=== PATIENT | female | born 1975 | race Caucasian/White ===

== ENCOUNTER → 2016-09-28 | Outpatient (CLI) | payer OTHER | LOC: FIMAGING 10:25 | DX: Z12.31 Encounter for screening mammogram for malignant neoplasm of breast (principal); Z80.3 Family history of malignant neoplasm of breast | CPT/HCPCS: G0202 ==

== ENCOUNTER 2016-10-10 07:33 | Day surgery (SDC) | payer OTHER ==
[2016-10-10] MEDS ORDERED: ROPIVACAINE HCL 20 MG/10 ML INJ EP ONE ×2 (07:45→08:47)
[2016-10-10] MEDS ORDERED: MIDAZOLAM 2 MG/2 ML VIAL ONE ×2 (08:42→08:48)
[2016-10-10] MEDS ORDERED: fentaNYL 100 MCG/2 ML INJ ONE ×3 (08:48→11:14)
[2016-10-10] MEDS ORDERED: PROPOFOL 200 MG/20 ML VIAL ONE (08:49)
[2016-10-10] MEDS ORDERED: PROPOFOL/EMULSION 500 MG/50 ML BOTTLE IV ONE (08:49)
[2016-10-10] MEDS ORDERED: LIDOCAINE 1% 5 ML SDV ID PRN (09:00)
[2016-10-10] MEDS ORDERED: LR 1,000 ML IV ONE (09:00)
[2016-10-10] MEDS ORDERED: LIDOCAINE 2% 5 ML SDV ONE (10:22)
[2016-10-10] MEDS ORDERED: ONDANSETRON 4 MG/2 ML VIAL ONE (10:23)
[2016-10-10] MEDS ORDERED: DEXAMETHASONE 4 MG/ML VIAL ONE (10:23)
[2016-10-10] MEDS ORDERED: KETOROLAC 30 MG/1 ML SDV ONE (10:23)
[2016-10-10] MEDS ORDERED: HYDROmorphONE/DILAUDID 1 MG/ML SYR ONE ×2 (11:20→11:58)
--- NOTE | 2016-10-10 11:46 | GOP ---
[f rep st] OPERATIVE REPORT DATE OF OPERATION: 10/10/2016 SURGEON: Kerwin Mesa MD PREOPERATIVE DIAGNOSIS: Nascent malunion, left distal radius. POSTOPERATIVE DIAGNOSIS: Nascent malunion, left distal radius. PROCEDURE PERFORMED: 1. Closing wedge osteotomy, left distal radius. 2. Open reduction, internal fixation with volar locking plate. FINDINGS: ESTIMATED BLOOD LOSS: 100 cc. INDICATIONS: The patient is a 41-year-old female, healthy. Had a snowboarding injury a couple redd hs ago. Had 3 interval x-rays that show reasonable alignment of the distal radius fracture. Is ext ra-articular. Between week 3 and week 7, she lost reduction dorsal tilt and shortening. Increasing pain. Reports no history of trauma. The patient elects for operative reduction for nascent maluni on of the left distal radius. DESCRIPTION OF PROCEDURE: The patient identified in the preoperative holding area. Consent, latera lity, and preoperative antibiotics were confirmed and delivered. All questions were answered. Defo rmed left wrist. Dinner fork deformity. Preoperative films reviewed. She needed about 30 degrees of correction to get back to neutral and a few millimeters of radial inclination, a few degrees of radial inclination. The patient was identified in the preoperative holding area. Consent laterality and preoperative an tibiotics were confirmed and delivered. All questions were answered. Patient brought into the operating room. A left interscalene block by ultrasound by Anesthesia. Ge neral anesthesia. Left arm tourniquet was placed. Left lower extremity prepped and draped in the u sual sterile fashion. Surgical time-out was performed. FCR approach. The pronator quadratus was t aken ulnarly. There was healing of the bone on the radial styloid. There was pronator quadratus in terposition on the volar surface without much healing. We did use a half-inch osteotome and opened up the fracture site. We then placed parallel joint guidewire on the distal fragment as well as a p arallel joint guidewire to the shaft which by eye ball looked about 30 degrees confirmed fluoroscopi ernie. Because it was partially healed, we went ahead and took a saw and cut an osteotomy where we could do a closing wedge, where we took a little bit more off the ulnar side and had an apex angular radial side so that we could provide a little bit more radial tilt as well as volar tilt. We freed up the scar tissue on the dorsal side from within the osteotomy site. We gapped open the j oint. We flipped the osteotomy so that we would have a corticocancellous graft on the dorsal surfac e and close down on the wedge putting a little bit more on the radial side. Provisional fluoroscopi c films show neutralization of the distal radius. Because of the soft tissue and scar, we went ahea d and chose a plate reduction technique. We lined up the volar plate at the lip of the distal radiu s. Proximally gave it about a 30 degree angle to the radial shaft, provisionally fixed this with K- wires, and this reduction looked excellent with slight distraction. We went ahead and filled the distal locking holes with pegs and then put a sliding shaft screw in th ere so we can adjust the radial height and inclination. Provisional fluoroscopic films show intact radial height approximately 18 degrees of radial inclination and neutralization on the lateral film. We filled in the remaining screws proximally with locking screws. We had pegs distally. We copio usly washed out the wound with 250 cc of warm normal saline. We closed the skin with 4-0 Monocryl, Dermabond, Mastisol, Steri-Strips, Xeroform, 4 x 4's in a neutral volar splint well padded. COMPLICATIONS: None. DISPOSITION: Extubated, awake to the PACU in stable condition. TOTAL TOURNIQUET TIME: 85 minutes. /[id number]/MODL
[2016-10-10] MEDS ORDERED: OXYCODONE/APAP 5/325 TAB ONE (11:58)
[2016-10-10] MEDS ORDERED: oxyCODONE IR 5 MG TAB PO PRN (12:00)
[2016-10-10] MEDS ORDERED: DIAZEPAM 10 MG/2 ML SYR ONE (12:00)
[2016-10-10] MEDS ORDERED: HYDROmorphONE/DILAUDID 2 MG/ML INJ IVP PRN (12:02)
[2016-10-10] MEDS ORDERED: ONDANSETRON 4 MG/2 ML VIAL IVP PRN (12:03)
[2016-10-10] MEDS ORDERED: PROMETHAZINE HCL 25 MG SUPPR PR PRN (12:04)
[2016-10-10] MEDS ORDERED: LORazepam 2 MG/ML INJ IVP PRN (12:05)
[2016-10-10] MEDS ORDERED: DIAZEPAM 5 MG TAB PO PRN (12:05)
== END 2016-10-10 17:01 | disposition home or self-care (01) ==
LOC: FSGY 07:33
PROVIDERS: ATTEND Orthopaedic Surgery
PROC: 0PSJ04Z Reposition Left Radius with Internal Fixation Device, Open Approach (ICD-10-PCS; principal; 2016-10-10 08:45)
DX: S52.512 Displaced fracture of left radial styloid process (principal); V00.311D Fall from snowboard, subsequent encounter
CPT/HCPCS: C1713; C1762; C1769; J0690; J1100; J1170; J1885; J2250; J2405; J2704; J2795; J3010

== ENCOUNTER → 2018-03-06 | Outpatient (CLI) | payer OTHER | LOC: FIMAGING 12:05 | PROVIDERS: ATTEND Nurse Practitioner Adult Health | DX: S92.515A Nondisplaced fracture of proximal phalanx of left lesser toe(s), initial encounter for closed fracture (principal) ==

== ENCOUNTER → 2018-04-05 | Outpatient (CLI) | payer OTHER | LOC: FIMAGING 13:07 | PROVIDERS: ATTEND Nurse Practitioner Women's Health | DX: Z12.31 Encounter for screening mammogram for malignant neoplasm of breast (principal) ==